=== PATIENT | female | born 1945 | race Caucasian/White ===

== ENCOUNTER 2016-06-01 08:45 | Emergency (ER) | payer OTHER ==
[2016-06-01] MEDS ORDERED: LABETALOL IV ONE (09:10)
--- NOTE | 2016-06-01 09:25 | PROVIDER DOCUMENTATION ---
HPI-EENT General - General Chief Complaint: B/P Problems Stated Complaint: NOSE BLEED Time Seen by Provider: 06/01/16 08:47 Source: patient Allergies/Adverse Reactions: Patient Allergies Allergy/AdvReac Type Severity Reaction Status Date / Time aspirin Allergy Unknown Verified 06/01/16 08:49 fexofenadine HCl * Allergy Unknown Verified 06/01/16 08:49 [From Bridget] gabapentin Allergy Unknown Verified 06/01/16 08:49 hydromorphone HCl * Allergy Unknown Verified 06/01/16 08:49 [From Dilaudid] methocarbamol Allergy Unknown Verified 06/01/16 08:49 pravastatin Allergy Unknown Verified 06/01/16 08:49 zolpidem tartrate * Allergy Unknown Verified 06/01/16 08:49 [From Ambien] aripiprazole [From Abilify] AdvReac Unknown Verified 06/01/16 08:49 Home Medications: Home Medication List Medication Instructions Recorded Confirmed Last Taken Type Carvedilol 6.25 mg PO BID #0 11/23/14 06/01/16 11/13/14 08:00 Rx 6.25mg Divalproex E.r. [Depakote ER] 500 mg PO TID #0 tablet 11/23/14 06/01/16 Unknown Rx Fenofibrate [Tricor] 48 mg PO QHS #0 11/23/14 06/01/16 11/12/14 21:00 Rx 48mg Furosemide 40 mg PO BID #0 11/23/14 06/01/16 11/13/14 08:00 Rx 40 Levothyroxine [Synthroid] 75 microgm PO DAILY #0 11/23/14 06/01/16 11/13/14 08: 00 Rx 75 Omeprazole 20 mg PO DAILY #0 11/23/14 06/01/16 11/13/14 08:00 Rx 20 Oxybutynin Chloride [Oxybutynin 15 mg PO DAILY #0 11/23/14 06/01/16 11/13/14 08 :00 Rx Chloride ER] Perphenazine [Trilafon] 4 mg PO BID #0 tablet 11/23/14 06/01/16 Unknown Rx Potassium Chloride E.r. [Micro-K] 10 meq PO DAILY #0 11/23/14 06/01/16 08:00 Rx 1 Pregabalin [Lyrica] 75 mg PO HS #0 11/23/14 06/01/16 10/10/14 22:30 Rx Ropinirole HCl 1 mg PO QHS #0 11/23/14 06/01/16 10/10/14 22:00 Rx Travoprost (Benzalkonium) 1 drp BOTH EYES QAM #0 11/23/14 06/01/16 11/12/14 08: 00 Rx [Travatan 0.004% Eye Drop] - History of Present Illness-EENT General Nature of Presenting Problem: Pt is 70 y/o F presents to the ED with epistaxis and HTN. Pt states the nose bleed started Wednesday and has been intermittently present since. Pt states nose bleed from R nostril. Pt states elevated BP after the nose bleed. Pt states VILLANUEVA with nose bleed and dizziness. Pt denies taking blood thinners. EENT Location: reports: nose Quality of Pain: reports: pressure Severity: reports: mild Onset/Duration: reports: 3 days ago Timing: reports: still present, intermittent Prearrival Treatment: Initiated no prearrival treatment Associated Symptoms: reports: other (nose bleed). denies: change in hearing, cough, drooling, ear drainage, facial pain/swelling, fever, malaise, nasal congestion/drainage, poor fluid intake, poor solids intake, sinus infection, sore throat, tooth pain, voice change Locality of [place]urance: Home Similar Symptoms Previously?: Yes Recently seen or treated by another doctor?: No - Nose Nose Problem Symptoms: nosebleed Review of Systems - Adult - REVIEW OF SYSTEMS - ADULT Constitutional: denies: chills, fever Eyes: denies: blurred vision, double vision Ears, Nose, Mouth & Throat: reports: epistaxis. denies: ear pain, nose pain, throat pain Cardiovascular: denies: chest pain, heart murmur, irregular heart rate Respiratory: denies: cough, shortness of breath, wheezing Gastrointestinal: denies: abdominal pain, diarrhea, nausea, vomiting Genitourinary: denies: dysuria, hematuria Musculoskeletal: denies: bone pain, joint pain, neck pain Integumentary: denies: hives, itching Neurological: reports: dizziness/vertigo (dizziness), headache/migraines (VILLANUEVA) Psychiatric: reports: no symptoms reported Endocrine: reports: no symptoms reported Hematologic/Lymphatic: reports: no symptoms reported Allergic/Immunologic: reports: no symptoms reported All Other Systems: Reviewed and Negative Past History - Adult - PAST MEDICAL HISTORY-ADULT Review of Records: reports: Nursing Assessment Review, Medications Reviewed, Social history reviewed & non-contributory. Major Childhood Illnesses: reports: denies history Cardiovascular: reports: CAD, HTN, [place], other (Periphreal edema) Respiratory: reports: denies history Gastrointestinal: reports: GERD Obstetrical/Gynecological: reports: denies history Genitourinary: reports: other (vulva CA) Musculoskeletal: reports: denies history Neurological: reports: denies history Psychiatric: reports: depression, other (schizoaffective disorder) Endocrine/Immune: reports: thyroid disorder (hypothyroid) Other Conditions: reports: other (peripheral edema) - PRIOR SURGERIES/PROCEDURES Surgical/Procedure History: reports: hysterectomy, BTL, indwelling device ( superpubic cath), other (vulva surgery) - IMMUNIZATION STATUS Childhood Immunizations: See Nurse Assessment Flu Vaccine: See Nurse Assessment - FAMILY HISTORY Family History: reviewed, not pertinent - SOCIAL HISTORY Smoking: quit greater than 1 year, cigarettes Substance Use: denies Living Situation: family Physical Exam- EENT - Physical Exam EENT Initial Vital Signs Reviewed: Yes General Appearance: appears well, alert, no apparent distress Eye Exam: bilateral eye: normal inspection, PERRL, EOMI Ear Exam: bilateral ear: auricle normal, canal normal, TM normal Nasal Exam: dried blood (R nostril). negative: active bleeding, discharge, foreign body, sinus tenderness Throat Exam: normal mouth inspection, pharynx normal Neck: non-tender, full range of motion, supple, normal inspection Respiratory: chest non-tender, lungs clear, normal breath sounds, no pleuratic chest pain, no respiratory distress, no accessory muscle use Cardiovascular: normal peripheral pulses, regular rate, rhythm, no edema, no gallop, no JVD, no murmur Abdominal Exam: normal bowel sounds, non tender, soft, no organomegaly, no pulsatile mass Lymphatic: no adenopathy Back Exam: normal inspection, no CVA tenderness, no vertebral tenderness Extremity: normal range of motion, non-tender, normal gait, normal inspection, no calf tenderness, normal capillary refill, pedal edema, swelling (edema to bilateral legs) Integumentary: normal color, normal turgor, warm/dry Neurologic: grossly normal Psych/Mental Status: normal mood/affect, oriented x 3 Progress - PLAN OF CARE/RESULTS Progress/Plan/Lab Results: Orders Category Date Time Status Cardiac Monitoring DIRECTED Care 06/01/16 09:10 Active Saline Loc NOW Care 06/01/16 09:10 Active CHEST-PORTABLE [RAD] Stat Exams 06/01/16 09:10 Ordered CBC WITH ELECTRONIC DIFF [HEME] Stat Lab 06/01/16 09:10 Ordered CK PROFILE [SP CHEM] Stat Lab 06/01/16 09:10 Ordered COMPREHENSIVE METABOLIC PANEL [CHEM] Stat Lab 06/01/16 09:10 Ordered MAGNESIUM [CHEM] Stat Lab 06/01/16 09:10 Ordered PRO B-NATRIURETIC PEPTIDE Stat Lab 06/01/16 09:10 Ordered PROTIME WITH INR [COAG] Stat Lab 06/01/16 09:10 Ordered PTT [COAG] Stat Lab 06/01/16 09:10 Ordered PTT [COAG] Stat Lab 06/01/16 09:16 Ordered TROPONIN T Stat Lab 06/01/16 09:10 Ordered Labetalol Med 06/01/16 09:10 Discontinued 20 mg IV NOW ONE EKG [EKG] Stat Ther 06/01/16 09:10 Ordered Vital Signs - 24 hr 06/01/16 08:46 Temperature 99.0 F Pulse Rate 73 Respiratory 20 Rate Blood Pressure 227/126 O2 Sat by Pulse 95 Oximetry Laboratory Tests 06/01/16 06/01/16 06/01/16 09:28 09:28 09:28 WBC 3.52 L RBC 3.84 L Hgb 12.3 Hct 38.0 MCV 99.0 MCH 32.0 H MCHC 32.4 L RDW Std Deviation 12.7 Plt Count 113 L MPV 8.4 Immature Gran % (Auto) 2.0 H Neut % (Auto) 52.8 Lymph % (Auto) 25.3 [place] % (Auto) 17.0 H Eos % (Auto) 2.3 Baso % (Auto) 0.6 Immature Gran # (Auto) 0.07 H Neut # (Auto) 1.86 Lymph # (Auto) 0.89 L [place] # (Auto) 0.60 H Eos # (Auto) 0.08 Baso # (Auto) 0.02 PT INR APTT (Factor Assay) Sodium 139 Potassium 3.9 Chloride 102 Carbon Dioxide 26 Anion Gap 11 BUN 23 H Creatinine 0.8 Estimated GFR/1.73 m2 > 60 BUN/Creatinine Ratio 29 Glucose 106 H Calculated Osmolality 282 Calcium 9.2 Magnesium 2.1 Total Bilirubin 0.50 AST 24 ALT 15 Alkaline Phosphatase 101 Creatine Kinase 60 Troponin T Kyx-H-Rjyxrkhxmkb Pept 119 Total Protein 6.3 Albumin 3.9 Globulin 2.0 Albumin/Globulin Ratio 2.0 06/01/16 06/01/16 09:28 09:28 WBC RBC Hgb Hct MCV MCH MCHC RDW Std Deviation Plt Count MPV Immature Gran % (Auto) Neut % (Auto) Lymph % (Auto) [place] % (Auto) Eos % (Auto) Baso % (Auto) Immature Gran # (Auto) Neut # (Auto) Lymph # (Auto) [place] # (Auto) Eos # (Auto) Baso # (Auto) PT 14.0 INR 1.05 APTT (Factor Assay) 27.6 Sodium Potassium Chloride Carbon Dioxide Anion Gap BUN Creatinine Estimated GFR/1.73 m2 BUN/Creatinine Ratio Glucose Calculated Osmolality Calcium Magnesium Total Bilirubin AST ALT Alkaline Phosphatase Creatine Kinase Troponin T < 0.010 Uqb-I-Afxhtjgkngu Pept Total Protein Albumin Globulin Albumin/Globulin Ratio - XRAY 1 XRAY: Bilateral XRAY Study: Chest Impression: Abnormal XRAY Interpretation: hiatal hernia. borderline cardiomegaly. Departure - Departure Time of Disposition Order: 10:33 DIAGNOSIS: Epistaxis Hypertension Qualifiers: Hypertension type: unspecified secondary hypertension Qualified Code(s): I15.9 - Secondary hypertension, unspecified; I15 - Secondary hypertension Disposition: HOME 01 Certified Medical Emergency: Emergent Condition: Stable Additional Instructions: Over the counter Aquaphor in bilateral nostrils. Follow up with PCP ASYA for further management. Referrals: Katherin Sullivan MD [Primary Care Provider] - Call for Appoint. 1-2days Attestation - Scribe Verification/Attestation Scribe:: Nisha Kirby Acting as Scribe for:: Rand Gutierrez Scribe documention review:: This chart was documented by a scribe and accurately reflects the service the provider performed and the decisions made by the provider.
[2016-06-01 09:35] LABS: MANUAL DIFF NEEDED? NO
[2016-06-01 09:37] LABS: BASO% 0.6 % (0.0-0.8); EOS# 0.08 X1000 (0.0-0.7); EOS% 2.3 % (0.0-10.0); HEMOGLOBIN 12.3 g/dL (12.0-16.0); IMM GRAN# 0.07 X1000 (0.0-0.04); LYMPH# 0.89 X1000 (1.2-3.4); LYMPH% 25.3 % (20.5-51.1); MCHC 32.4 g/dL (33-37); MPV 8.4 FL (7.4-10.4); NEUT% 52.8 % (42.2-75.2); PLT 113 X1000 (130-400); RBC 3.84 XMIL (4.2-5.4)
--- NOTE | 2016-06-01 09:38 | EKG Report ---
Test Performed on : 06/01/2016 09:28:43 AM Test Reason : CP Blood Pressure : / mmHG Vent. Rate : 067 BPM Atrial Rate : 067 BPM P-R Int : 222 ms QRS Dur : 092 ms QT Int : 408 ms P-R-T Axes : 046 -06 064 degrees QTc Int : 431 ms Sinus rhythm. with 1st degree AV block. Nonspecific T wave abnormality Abnormal ECG When compared with ECG of 12-SEP-2014 03:18, Nonspecific T wave abnormality, worse in Inferior leads T wave inversion now evident in Anterior leads Unconfirmed Result
[2016-06-01 09:50] LABS: INR 1.05 (0.86-1.15)
[2016-06-01 09:51] LABS: PTT PL 27.6 Seconds (22.6-43.9)
[2016-06-01 09:58] LABS: AGAP 11; ALBUMIN 3.9 g/dL (3.5-5.0); ALKALINE PHOSPHATASE 101 U/L (32-104); BUN 23 mg/dL (8-22); CALCIUM 9.2 mg/dL (8.8-10.2); CHLORIDE 102 mmol/L (98-107); CK PROFILE 60 U/L (24-173); COSMO 282; GOT 24 U/L (10-30); GPT 15 U/L (10-36); MAGNESIUM 2.1 mg/dL (1.5-2.7); POTASSIUM 3.9 mmol/L (3.5-5.1); SODIUM 139 mmol/L (136-145); TCO2 26 mmol/L (25-35); TOTAL PROTEIN 6.3 g/dL (6.3-8.3)
--- NOTE | 2016-06-01 10:22 | Diag Imaging Result Document ---
PROCEDURE NAME: CHEST-PORTABLE - 06/01/2016 PORTABLE CHEST AT 0915 HOURS: FINDINGS: There is a large hiatal hernia. The appearance of the chest has not changed significantly since 10/11/2014. The heart size is at the upper limits of normal. IMPRESSION: Hiatal hernia. Borderline cardiomegaly.
[2016-06-01 11:01] VITALS: BP 145/101
== END 2016-06-01 11:04 | disposition home or self-care (01) ==
LOC: P.ED 08:45
DX: R04.0 Epistaxis (principal); I10 Essential (primary) hypertension; R51 Headache; R42 Dizziness and giddiness; R60.0 Localized edema; I25.10 Atherosclerotic heart disease of native coronary artery without angina pectoris; I25.2 Old myocardial infarction; K21.9 Gastro-esophageal reflux disease without esophagitis; E03.9 Hypothyroidism, unspecified; Z79.899 Other long term (current) drug therapy; Z85.89 Personal history of malignant neoplasm of other organs and systems
CPT/HCPCS: 36415; 71010; 80053; 82550; 83735; 83880; 84484; 85025; 85610; 85730; 93005; 99284

== ENCOUNTER 2016-09-21 09:58 | Observation (INO) ==
[2016-09-21] MEDS ORDERED: NS 1,000 ML IV ONE (10:18)
[2016-09-21 10:47] LABS: MANUAL DIFF NEEDED? NO
[2016-09-21 10:52] LABS: BASO% 0.6 % (0.0-0.8); EOS# 0.15 X1000 (0.0-0.7); HEMATOCRIT 35.5 % (37.0-47.0); HEMOGLOBIN 11.5 g/dL (12.0-16.0); IMM GRAN# 0.16 X1000 (0.0-0.04); IMM GRAN% 3.2 % (0.0-0.5); LYMPH# 1.02 X1000 (1.2-3.4); LYMPH% 20.4 % (20.5-51.1); MCH 31.8 PG (27-31); MCHC 32.4 g/dL (33-37); MCV 98.1 FL (81-99); MONO# 0.71 X1000 (0.11-0.59); MONO% 14.2 % (1.7-9.3); MPV 8.7 FL (7.4-10.4); NEUT% 58.6 % (42.2-75.2); PLT 123 X1000 (130-400); RBC 3.62 XMIL (4.2-5.4)
[2016-09-21] MEDS ORDERED: NS 1,000 ML ONE (10:59)
[2016-09-21 11:05] LABS: INR 1.02 (0.86-1.15); PROTIME 13.7 Seconds (12.1-15.5)
[2016-09-21 11:06] LABS: PTT PL 28.6 Seconds (22.6-43.9)
[2016-09-21 11:08] LABS: ALBUMIN 3.9 g/dL (3.5-5.0); CALCIUM 9.2 mg/dL (8.8-10.2); POTASSIUM 4.1 mmol/L (3.5-5.1); TOTAL BILIRUBIN 0.5 mg/dL (0.20-1.00); TOTAL PROTEIN 6.7 g/dL (6.3-8.3)
--- NOTE | 2016-09-21 11:41 | Diag Imaging Result Doc PS360 ---
EXAM: CT ABD/PELVIS W/ IV CONT ONLY HISTORY: Abd pain with vag bleeding TECHNIQUE: Dose reduction protocol COMPARISON: 07/19/2014 FINDINGS: The heart is enlarged. There is a moderate sized hiatal hernia. There are several stones within the gallbladder. The gallbladder is contracted. There is fatty infiltration of the liver. Normal spleen, pancreas, and adrenal glands. No renal masses. Mild bilateral hydronephrosis. No ureteral stones. Moderate atherosclerosis. No aneurysmal dilatation to the aorta. No bowel obstruction. Normal appendix. No abscess. The urinary bladder is moderately distended. The wall is not thickened. The uterus has been removed. No pelvic mass. IMPRESSION: 1.Cardiomegaly 2.Moderate sized hiatal hernia 3.Cholelithiasis 4.Fatty infiltration of the liver 5.Mild bilateral hydronephrosis, but no ureteral stones. 6.Hysterectomy Electronically signed by Albert Villegas 09/21/2016 11:39 AM
[2016-09-21 13:00] LABS: BILIRUBIN URINE NEGATIVE (NEGATIVE); BLOOD URINE 4+ (NEGATIVE); CLARITY VERY CLOUDY (CLEAR); COLOR RED; GLUCOSE URINE NEGATIVE (NEGATIVE); LEUKOCYTES URINE 1+ (NEGATIVE); NITRITE URINE NEGATIVE (NEGATIVE); PROTEIN URINE 2+(100 mg/dL) mg/dL (NEGATIVE); SP GRAVITY URINE 1.015; UROBILINOGEN URINE NORMAL
[2016-09-21] MEDS ORDERED: NORCO-7.5 ONE (13:02)
[2016-09-21] MEDS ORDERED: NORCO-7.5 PO ONE (13:05)
[2016-09-21] MEDS ORDERED: ROCEPHIN 1 GM/NS 1 GM/50 ML IVPB IV ONE (13:23)
[2016-09-21 13:30] LABS: URINE CULTURE PL NEEDED? YES; URINE RBC TNTC /HPF (<10); URINE SOURCE CLEAN CATCH
--- NOTE | 2016-09-21 14:59 | PROVIDER DOCUMENTATION ---
This chart was entered by Susan Estes Scribe, acting as scribe for Rand Gutierrez MD. HPI-Female /OB/Breast - General Chief Complaint: Female Stated Complaint: HEMEORRHAGING Time Seen by Provider: 09/21/16 10:17 Source: reports: patient Allergies/Adverse Reactions: Patient Allergies Allergy/AdvReac Type Severity Reaction Status Date / Time aspirin Allergy Unknown Verified 06/01/16 08:49 fexofenadine HCl * Allergy Unknown Verified 06/01/16 08:49 [From Bridget] gabapentin Allergy Unknown Verified 06/01/16 08:49 hydromorphone HCl * Allergy Unknown Verified 06/01/16 08:49 [From Dilaudid] methocarbamol Allergy Unknown Verified 06/01/16 08:49 pravastatin Allergy Unknown Verified 06/01/16 08:49 zolpidem tartrate * Allergy Unknown Verified 06/01/16 08:49 [From Ambien] aripiprazole [From Abilify] AdvReac Unknown Verified 06/01/16 08:49 Home Medications: Home Medication List Medication Instructions Recorded Confirmed Last Taken Type Carvedilol 6.25 mg PO BID #0 11/23/14 06/01/16 11/13/14 08:00 Rx 6.25mg Divalproex E.r. [Depakote ER] 500 mg PO TID #0 tablet 11/23/14 06/01/16 Unknown Rx Fenofibrate [Tricor] 48 mg PO QHS #0 11/23/14 06/01/16 11/12/14 21:00 Rx 48mg Furosemide 40 mg PO BID #0 11/23/14 06/01/16 11/13/14 08:00 Rx 40 Levothyroxine [Synthroid] 75 microgm PO DAILY #0 11/23/14 06/01/16 11/13/14 08: 00 Rx 75 Omeprazole 20 mg PO DAILY #0 11/23/14 06/01/16 11/13/14 08:00 Rx 20 Oxybutynin Chloride [Oxybutynin 15 mg PO DAILY #0 11/23/14 06/01/16 11/13/14 08 :00 Rx Chloride ER] Perphenazine [Trilafon] 4 mg PO BID #0 tablet 11/23/14 06/01/16 Unknown Rx Potassium Chloride E.r. [Micro-K] 10 meq PO DAILY #0 11/23/14 06/01/16 08:00 Rx 1 Pregabalin [Lyrica] 75 mg PO HS #0 11/23/14 06/01/16 10/10/14 22:30 Rx Ropinirole HCl 1 mg PO QHS #0 11/23/14 06/01/16 10/10/14 22:00 Rx Travoprost (Benzalkonium) 1 drp BOTH EYES QAM #0 11/23/14 06/01/16 11/12/14 08: 00 Rx [Travatan 0.004% Eye Drop] - History of Present Illness-Female /OB Nature of Presenting Problem: PT IS A 71YOF PRESENTING TO THE ED C/O VAGINAL BLEEDING. PT STATES SHE HAD A FULL HYSTERECTOMY IN 2008 AND 3 DAYS AGO SHE BEGAN HAVING WHAT SHE THINKS IS VAGINAL BLEEDING. PT STATES USING 5-6 SANITARY PADS PER DAY. PTS ABD IS DISTENDED AND UNSURE IF ITS HEMORRHOID BLEEDING OR VAGINAL. SHE STATES IT BURNED ONCE WITH URINATION. SHE IS HAVING PELVIC PAIN AND LOW BACK PAIN. NO OTHER COMPLAINTS NOTED AT THIS TIME. Location of complaint: reports: suprapubic Radiation: reports: back Quality of Pain: reports: aching, cramping Severity in ED: reports: moderate Onset/Duration: reports: 3 days ago Timing: reports: still present Context/Activities at Onset: reports: light activity Vaginal Symptoms: reports: abnormal bleeding, passing clots/tissue Vaginal Bleeding Amount: Medium/Moderate Urinary Symptoms: reports: low back pain, other (ONE EPISODE OF BURNING DURING) Related Symptoms: reports: pelvic pain, vaginal bleeding, abdominal pain Leakage of Fluid: none Sexual intercourse history: reports: Not Active Contraception: reports: none Modifying Factors: improves with: palpation, urinating Associated Symptoms: reports: anxiety. denies: back/neck pain, chest pain, diarrhea, fatigue, nausea, vomiting Similar Symptoms Previously?: No Recently seen or treated by another doctor?: No - LMP/ History Menstrual Status: other (HYSTERECTOMY) Review of Systems - Adult - REVIEW OF SYSTEMS - ADULT Constitutional: reports: no symptoms reported Eyes: reports: no symptoms reported Ears, Nose, Mouth & Throat: reports: no symptoms reported Cardiovascular: reports: no symptoms reported Respiratory: reports: no symptoms reported Gastrointestinal: reports: see HPI, abdominal pain, other (SUPRAPUBIC/ PELVIC PAIN) Genitourinary: reports: no symptoms reported, see HPI, dysuria, frequent UTI's. denies: urgency Musculoskeletal: reports: no symptoms reported Integumentary: reports: no symptoms reported Neurological: reports: no symptoms reported Psychiatric: reports: no symptoms reported Endocrine: reports: no symptoms reported Hematologic/Lymphatic: reports: no symptoms reported Allergic/Immunologic: reports: no symptoms reported All Other Systems: Reviewed and Negative Past History - Adult - PAST MEDICAL HISTORY-ADULT Review of Records: reports: Old Records Reviewed, Nursing Assessment Review, Medications Reviewed, Social history reviewed & non-contributory. Major Childhood Illnesses: reports: denies history Cardiovascular: reports: CAD, HTN, [place], other (Periphreal edema) Respiratory: reports: denies history Gastrointestinal: reports: GERD Obstetrical/Gynecological: reports: denies history Genitourinary: reports: other (vulva CA) Musculoskeletal: reports: denies history Neurological: reports: denies history Psychiatric: reports: depression, other (schizoaffective disorder) Endocrine/Immune: reports: thyroid disorder (hypothyroid) Other Conditions: reports: other (peripheral edema) - PRIOR SURGERIES/PROCEDURES Surgical/Procedure History: reports: hysterectomy, BTL, indwelling device ( superpubic cath), other (vulva surgery) - IMMUNIZATION STATUS Childhood Immunizations: See Nurse Assessment Flu Vaccine: See Nurse Assessment - FAMILY HISTORY Family History: reviewed, not pertinent - SOCIAL HISTORY Smoking: cigarettes, greater than 1 pack/day Provider spent 3-5 mins advising pt. on dangers of tobacco.: Discussed manners to quit use, and f/u contacts for add'l counseling. Substance Use: none/never, denies Living Situation: family Physical Exam-General - PHYSICAL EXAM-ADULT Initial Vital Signs Reviewed: Yes - CONSTITUTIONAL General Appearance: appears well, alert, mild distress, obese, anxious - EYES Eyes: PERRL/EOMI, pink conjunctivae - HEAD, EARS, NOSE, MOUTH & THROAT HENMT: normocephalic/atraumatic, moist mucous membranes, normal ENT inspection, TMs normal, pharynx normal - NECK Neck: non-tender, full range of motion, supple, normal inspection - RESPIRATORY Respiratory: chest non-tender, lungs clear, normal breath sounds, no pleuratic chest pain, no respiratory distress, no accessory muscle use - CARDIOVASCULAR Cardiovascular: normal peripheral pulses, regular rate, rhythm, no edema, no gallop, no JVD, no murmur - GASTROINTESTINAL (ABDOMEN) Abdominal Exam: normal bowel sounds, soft, no organomegaly, no pulsatile mass, distended, tenderness (PELVIC). negative: non tender - LYMPHATIC Lymphatic: no adenopathy - MUSCULOSKELETAL Back Exam: normal inspection, no CVA tenderness, no vertebral tenderness Extremity: normal range of motion, non-tender, normal gait, normal inspection, no pedal edema, no calf tenderness, normal capillary refill, pelvis stable - SKIN Integumentary: normal color, normal turgor, warm/dry - NEUROLOGIC Neurologic: allergy specialist II-XII nml as tested, grossly normal, no motor/sensory deficits - PSYCHIATRIC Psych/Mental Status: normal mood/affect, normal thought content, normal thought process, oriented x 3, anxious Progress - PLAN OF CARE/RESULTS Progress/Plan/Lab Results: Vital Signs - 8 hr 09/21/16 10:03 Temperature 98 F Pulse Rate 76 Respiratory Rate 18 Blood Pressure 186/110 O2 Sat by Pulse Oximetry 95 Laboratory Results - last 24 hr 09/21/16 09/21/16 09/21/16 10:35 10:35 10:35 WBC 4.99 RBC 3.62 L Hgb 11.5 L Hct 35.5 L MCV 98.1 MCH 31.8 H MCHC 32.4 L RDW Std Deviation 12.7 Plt Count 123 L MPV 8.7 Immature Gran % (Auto) 3.2 H Neut % (Auto) 58.6 Lymph % (Auto) 20.4 L [place] % (Auto) 14.2 H Eos % (Auto) 3.0 Baso % (Auto) 0.6 Immature Gran # (Auto) 0.16 H Neut # (Auto) 2.92 Lymph # (Auto) 1.02 L [place] # (Auto) 0.71 H Eos # (Auto) 0.15 Baso # (Auto) 0.03 PT 13.7 INR 1.02 APTT (Factor Assay) 28.6 Sodium 139 Potassium 4.1 Chloride 103 Carbon Dioxide 27 Anion Gap 10 BUN 29 H Creatinine 1.0 H Estimated GFR/1.73 m2 55 BUN/Creatinine Ratio 29 Glucose 100 Calculated Osmolality 283 Calcium 9.2 Total Bilirubin 0.50 AST 24 ALT 14 Alkaline Phosphatase 77 Total Protein 6.7 Albumin 3.9 Globulin 3.0 Albumin/Globulin Ratio 1.0 Amylase 37 Lipase 19 Urine Source Urine Color Urine Clarity Urine pH Ur Specific [place] Urine Protein Urine Ketones Urine Blood Urine Nitrite Urine Bilirubin Urine Urobilinogen Urine Microscopic RBC Urine WBC Urine Glucose 09/21/16 11:10 WBC RBC Hgb Hct MCV MCH MCHC RDW Std Deviation Plt Count MPV Immature Gran % (Auto) Neut % (Auto) Lymph % (Auto) [place] % (Auto) Eos % (Auto) Baso % (Auto) Immature Gran # (Auto) Neut # (Auto) Lymph # (Auto) [place] # (Auto) Eos # (Auto) Baso # (Auto) PT INR APTT (Factor Assay) Sodium Potassium Chloride Carbon Dioxide Anion Gap BUN Creatinine Estimated GFR/1.73 m2 BUN/Creatinine Ratio Glucose Calculated Osmolality Calcium Total Bilirubin AST ALT Alkaline Phosphatase Total Protein Albumin Globulin Albumin/Globulin Ratio Amylase Lipase Urine Source CLEAN CATCH Urine Color RED Urine Clarity VERY CLOUDY A Urine pH 7.0 Ur Specific [place] 1.015 Urine Protein 2+(100 mg/dL) A Urine Ketones NEGATIVE Urine Blood 4+ Urine Nitrite NEGATIVE Urine Bilirubin NEGATIVE Urine Urobilinogen NORMAL Urine Microscopic RBC TNTC A Urine WBC 1+ A Urine Glucose NEGATIVE Orders Category Date Time Status Pelvic set up DIRECTED Care 09/21/16 12:15 Active Saline Loc DIRECTED Care 09/21/16 10:18 Active NPO Diet 09/21/16 10:[address] ABD/PELVIS W/ IV CONT ONLY [CT] Stat Exams 09/21/16 10:18 Completed AMYLASE [CHEM] Stat Lab 09/21/16 10:35 Completed CBC WITH ELECTRONIC DIFF [HEME] Stat Lab 09/21/16 10:35 Completed COMPREHENSIVE METABOLIC PANEL [CHEM] Stat Lab 09/21/16 10:35 Completed LIPASE [CHEM] Stat Lab 09/21/16 10:[address] Com[address]IME WITH INR PL [COAG] Stat Lab 09/21/16 10:[address] [COAG] Stat Lab 09/21/16 10:[address] W/POSS RFLX CULT [URINALYSIS] Stat Lab 09/21/16 11:10 Completed URINE CULTURE [RM] Routine Lab 09/21/16 13:30 Ordered 0.9% Sodium Chloride Inj [Ns] 1,000 ml Med 09/21/16 10:59 Discontinued .ROUTE As Directed 0.9% Sodium Chloride Inj [Ns] 1,000 ml Med 09/21/16 10:18 Discontinued IV 999 mls/hr CefTRIAXONE 1 GM/NS [Rocephin 1 gm/Ns] Med 09/21/16 13:23 Discontinued 1 gm in 50 ml IV NOW Hydrocodone/APAP 7.5 mg/325 mg [[place]-7.5] Med 09/21/16 13:02 Discontinued 1 each .ROUTE .STK-MED ONE Hydrocodone/APAP 7.5 mg/325 mg [[place]-7.5] Med 09/21/16 13:05 Discontinued 1 each PO NOW ONE Result Diagrams: 09/21/16 10:35 09/21/16 10:35 - REASSESSMENT Reassessment #1 Time Reassessed: 13:23 Status: unchanged (Rectal exam - multiple external hemorrhoids, no thrombosis noticed. 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 Pt lost bladder control and she has bloody urine comming out constantly. Dr. Sanderson was consulted and instructed to call pt's CREDIT ADVISOR Oncologist and f/u. Dr. Guillermo Faulkner was paged because she was the Oncologist treated her for the cancer X 2 years ago.) Reassessment #2 Time Reassessed: 14:56 Status: unchanged (Discussed with Dr. Faulkner's PAHortensia - referred to Dr. Gardner , Radiation Oncologist, who decided to admit to [place] via hospitalist.) - CT/MRI 1 CT Study: Abdomen, Pelvis (MILD BILAT HYDRONEPHROSIS, NO STONES NOTED, HYSTERECTOMY) CT Results: CARDIOMEGALLY, MOD HITAL HERNIA, CHOLELITHIOSIS, FATTY LIVER Departure - Departure Date of Disposition Decision: 09/21/16 Time of Disposition Decision: 14:57 DIAGNOSIS: Vaginal hemorrhage, Hematuria, History of radiation therapy Disposition: ADMITTED INPATIENT 09 Certified Medical Emergency: Emergent Condition: Stable Referrals and Follow-Ups: Katherin Sullivan MD [Primary Care Provider] - - Critical Care Note This patient required my direct & personal management of CC.: Yes Total Time (mins): 45 Critical Care Statement: This patient required my direct personal management to treat or rule out processes, the absence of which, could potentiallly result in sudden, clinically significant life or limb threatening deterioration. This chart was documented by the indicated scribe, (Susan Estes Scribe) and accurately reflects the services I performed and decisions made by me, Rand Gutierrez MD, as attested by the provider's signature.
[2016-09-21] MEDS ORDERED: TRILAFON PO ONE ×2 (17:01→17:15)
[2016-09-21] MEDS ORDERED: DEPAKOTE ER PO ONE (17:01)
[2016-09-21] MEDS ORDERED: ZOFRAN IV PRN (18:53)
[2016-09-21] MEDS ORDERED: TYLENOL PO PRN (18:53)
--- NOTE | 2016-09-21 19:47 | HISTORY AND PHYSICAL ---
PRIMARY CARE PHYSICIAN: Katherin Sullivan MD CHIEF COMPLAINT: Vaginal bleed. HISTORY OF PRESENT ILLNESS: This is a 71-year-old female with a history of vulvar cancer status post hysterectomy and subsequent radiation. She presented to the emergency room complaining of abdominal pain for the last 3-4 days and stating that she had some terrible cramps this morning, followed by vaginal bleeding. She stated the blood ran down her leg. It was bright red and she did have clots. She has had no further episodes. A pelvic was performed per Dr. Gutierrez, the emergency room physician and no blood was seen. She states that she has had no prior history of vaginal bleeding, although when you look back in her records, she was in the emergency room for vaginal bleeding. She denies any syncope, dizziness, shortness of breath, PND, orthopnea, any black or bloody vomitus black or bloody stools, any diarrhea or constipation. She will be admitted to [facility], [place] for further evaluation and treatment. PAST MEDICAL HISTORY: Hypertension. History of diet-controlled diabetes. Hypothyroid. Vulvar cancer status post hysterectomy and chemotherapy. Schizoaffective disorder, bipolar type. Hiatal hernia. PAST SURGICAL HISTORY: Hysterectomy. SOCIAL HISTORY: She denies alcohol, tobacco or illicit drug use. ALLERGIES: Phenergan, Lyrica, aspirin, hydrocodone, ibuprofen, methocarbamol, gabapentin and Dilaudid. REVIEW OF SYSTEMS: A 14-point review of systems is discussed with the patient with pertinent positives stated in the HPI. She denied chest pain, palpitations, syncope, dizziness, shortness of breath, cough, fever, chills, PND, orthopnea, nausea, vomiting, diarrhea, constipation, black or bloody vomitus, black or bloody stools, any hematuria, dysuria, frequency, or urgency. PHYSICAL EXAMINATION: GENERAL: This is a 71-year-old female who is lying in the bed in no distress. HEENT: Head is normocephalic, atraumatic. Pupils are equal, round, react to light. EOMs are intact. Sclerae are anicteric. Mucous membranes are moist. NECK: Supple with trachea midline. CARDIOVASCULAR: Regular rate and rhythm. S1 and S2 are appreciated. PULMONARY: Breath sounds are clear with no increased work of breathing noted. Chest does rise and fall symmetrically with respiration. ABDOMEN: Large. It is distended. It is soft. It is nontender with bowel sounds in all 4 quadrants. MUSCULOSKELETAL: Good range of motion to joints. EXTREMITIES: No clubbing, cyanosis, or edema. Calves are nontender. Pulses are palpable x4. NEUROLOGIC: She is alert and oriented x3. DIAGNOSTICS: Laboratory: WBC is 4.9, with a hemoglobin 11.5, hematocrit 35.5 and platelets of 123,000. Sodium is 139, potassium 4.1, BUN 29, creatinine 1, with a glucose of 100. Urinalysis revealed 2+ protein with 4+ blood, too numerous to count microscopic red blood cells. CT scan of the abdomen and pelvis revealed cardiomegaly, moderate-sized hiatal hernia, cholelithiasis, fatty infiltration of the liver, mild bilateral hydronephrosis, but no ureteral stones and hysterectomy. This was compared to CT of July 2014. ASSESSMENT: 1. Vaginal bleeding. 2. History of vulvar cancer status post hysterectomy in 2008. 3. Hypertension. 4. Hypothyroid. 5. Schizoaffective disorder, bipolar type. 6. DVT and GI prophylaxis. PLAN: 1. The patient will be admitted to the hospital. We will draw routine labs and trend hemoglobin and hematocrit. We will monitor for any further bleeding. We will identify her home medications and continue as appropriate. We will check a TSH, fingerstick blood sugars. 2. I did call Dr. Sanderson who is cnc applications engineer for Gynecology and she stated that in light of no blood being found per Dr. Gutierrez during a vaginal exam that she recommends the patient follow up with BONDING EQUIPMENT OPERATOR/Oncology on an outpatient basis. The patient has not no BONDING EQUIPMENT OPERATOR/Oncology. She has never seen them. She followed with Brunilda Gutierrez MD who did her surgery and Dr. Chiquita Faulkner who did her chemotherapy. She states she has not seen Dr. Faulkner in over 5 years after chemotherapy was completed. She has been following with Dr. Sullivan, her primary care physician. 3. For DVT prophylaxis we will use SCDs and for GI prophylaxis we will use Prilosec. Further treatments pending hospital course. Dictated by SHAQUILLE Reaves for Dayne Pak MD cc: SHAQUILLE Reaves MD [facility]
[2016-09-22 06:07] LABS: HEMATOCRIT 36.8 % (37.0-47.0); MCH 32.3 PG (27-31); MCHC 32.6 g/dL (33-37); MCV 99.2 FL (81-99); MPV 9.2 FL (7.4-10.4); RBC 3.71 XMIL (4.2-5.4)
[2016-09-22 06:23] LABS: ALBUMIN 3.6 g/dL (3.5-5.0); CALCIUM 9.3 mg/dL (8.8-10.2); POTASSIUM 4.1 mmol/L (3.5-5.1); TOTAL BILIRUBIN 0.6 mg/dL (0.20-1.00); TOTAL PROTEIN 6.3 g/dL (6.3-8.3)
[2016-09-22] MEDS: NORCO-7.5 PO PRN ×2 (12:34→21:09)
--- NOTE | 2016-09-22 13:01 | PROGRESS NOTE ---
DATE: 09/22/2016 SUBJECTIVE: This patient states that she is feeling better. She is still having vaginal bleed but compared with admission, it is not that bad. She states that she has been having clots but recently it is better. I did a manual vaginal examination and the blood is coming from her vagina. I will contact Dr. Faulkner because apparently that was that was the initial plan. OBJECTIVE: Vital Signs: Temperature 98.5 degrees, pulse 78, respiratory rate 20, blood pressure 139/80, oxygen saturation 94% on room air. HEENT: Head normocephalic. No trauma. PERRLA. Neck: Supple. No JVD. No masses. Central trachea. Chest: Clear to auscultation. No wheezing. No rales. Abdomen: Soft, protuberant, nontender, nondistended. No hepatosplenomegaly. Pelvic Area: Her skin irritated, sensitive. Blood is coming out from her vagina. I did a manual vaginal examination to corroborate this. Neurological: The patient is alert and oriented x3. No focal deficits. LABORATORY: WBC 9.2, hemoglobin 12, hematocrit 36.8, platelets 118,000. Sodium 141, potassium 4.1, chloride 102, bicarbonate 26, BUN 22, creatinine 1.1, glucose 114, calcium 9.3. ASSESSMENT AND PLAN: 1. Vaginal bleed. Hematology/oncology has been consulted since she was previously treated by Dr. Faulkner secondary to vulvar cancer. Apparently she had a hysterectomy done in 2008. We will follow her recommendations. Hemoglobin and hematocrit are stable. 2. History of vulvar cancer, as above. 3. Hypertension. Stable. Continue with the same management. 4. Hypothyroidism. I will put this patient on levothyroxine. 5. Schizoaffective disorder, bipolar type. Aware. 6. Deep vein thrombosis and gastrointestinal prophylaxis. We will continue with SCDs. I have no reasons to use PPIs. cc: Yasir Garcia MD
[2016-09-22] MEDS: LYRICA PO SCH ×2 (19:50→22:51)
[2016-09-22] MEDS: REQUIP PO SCH ×2 (19:51→22:53)
[2016-09-22] MEDS: MEVACOR PO SCH ×2 (19:51→22:53)
[2016-09-22] MEDS: COREG PO SCH ×2 (19:53→22:46)
[2016-09-23 05:13] VITALS: BP 134/91
[2016-09-23] MEDS: SYNTHROID PO SCH ×2 (05:17→06:12)
[2016-09-23 06:46] LABS: MANUAL DIFF NEEDED? NO
[2016-09-23 06:57] LABS: BASO% 0.3 % (0.0-0.8); EOS# 0.17 X1000 (0.0-0.7); EOS% 2.3 % (0.0-10.0); HEMATOCRIT 32.2 % (37.0-47.0); HEMOGLOBIN 10.5 g/dL (12.0-16.0); IMM GRAN% 1.4 % (0.0-0.5); LYMPH% 17.8 % (20.5-51.1); MCH 32.4 PG (27-31); MCHC 32.6 g/dL (33-37); MCV 99.4 FL (81-99); MONO# 1.06 X1000 (0.11-0.59); MONO% 14.5 % (1.7-9.3); MPV 9.2 FL (7.4-10.4); NEUT% 63.7 % (42.2-75.2); PLT 131 X1000 (130-400); RBC 3.24 XMIL (4.2-5.4)
[2016-09-23 07:17] LABS: CALCIUM 8.9 mg/dL (8.8-10.2); POTASSIUM 3.9 mmol/L (3.5-5.1)
[2016-09-23] MEDS: COREG PO SCH (07:56)
[2016-09-23] MEDS: NORCO-7.5 PO PRN (07:56)
[2016-09-23] MEDS ORDERED: PNEUMOVAX 23 IM ONE (08:30)
[2016-09-23] MEDS ORDERED: TRAVATAN 0.004% OPH SOLN BOTH EYES SCH (09:00)
[2016-09-23] MEDS ORDERED: KLOR-CON PO SCH (09:00)
[2016-09-23] MEDS ORDERED: DITROPAN XL PO SCH (09:00)
[2016-09-23] MEDS ORDERED: LOFIBRA PO SCH (09:00)
[2016-09-23] MEDS ORDERED: LASIX PO SCH (09:00)
--- NOTE | 2016-09-23 11:44 | CONSULTATION ---
DATE OF CONSULTATION: 09/22/2016 CONSULTATION REQUESTED BY: The hospitalist service. REASON FOR CONSULTATION: Vulvar cancer, patient known. HISTORY OF PRESENT ILLNESS: Ms. Kavitha Drummond is a 71-year-old female, who has a history of vulvar cancer, who is status post hysterectomy. The patient has been lost to follow up and was last seen in our office in 2014. The patient has previously received chemo/radiation and completed 5 cycles of cisplatin. The patient has been evaluated by CABLE BRAIDER/Onc previously. She is a patient of Dr. Esparza; she last saw Dr. Esparza in September 2014. At that time per his office visit note, it was suspected that the patient had recurrence around the urethra. The patient at that time expressed that she did not want to undergo any further treatments for her cancer. The patient declined an exam under anesthesia and a biopsy at that time as well. The patient was to follow up with Dr. Esparza in December 2014, but did not show up at that appointment. She was also scheduled to see us around that same time. The patient is now in presenting to [facility] complaining of abdominal pain, as well as vaginal bleeding. She has undergone a pelvic examination in the emergency room where no vaginal bleeding was noted. The on-call CABLE BRAIDER was contacted and recommended the patient follow up as an outpatient with either CABLE BRAIDER/Onc or gynecology. It seems now that a repeat pelvic has been done and appears that the patient does have some vaginal bleeding. It is believed that the patient is having a recurrence of her cancer. The patient has no acute distress at this time. PAST MEDICAL HISTORY: 1. Hypertension. 2. Diabetes. 3. Hypothyroidism. 4. Vulvar cancer status post hysterectomy, as well as chemotherapy and radiation. 5. Schizoaffective disorder, bipolar type. 6. Hiatal hernia. PAST SURGICAL HISTORY: 1. BSO. 2. Hysterectomy. 3. Urethral sling. 4. Endometrial ablation. SOCIAL HISTORY: Patient is . She lives with her spouse. She is a former smoker, but discontinued smoking back in 1987. She denies any alcohol or illicit drug use. FAMILY HISTORY: Positive for diabetes mellitus and lung cancer in her father. She also has 2 sisters who have uterine cancer or "female cancer". She also has a brother and a sister, who both of lung cancer. REVIEW OF SYSTEMS: A 12 point review of systems has been completed and is negative, except for in the HPI. PHYSICAL EXAMINATION: Vital Signs: Temperature 98.5 degrees, heart rate 78, respirations 20, blood pressure 139/80, 02 saturating 82% to 94% on room air. General: female sitting in hospital bed with her at bedside. She is eating lunch. No acute distress. Eyes: Pupils equal, round, reactive. Ears, nose, throat, neck, and mouth: Oral mucosa appears to be normal. Trachea midline. Gross auditory acuity is intact. Cardiovascular: S1, S2 heard. No murmurs, gallops, rubs appreciated. Respiratory: Chest is essentially clear to auscultation bilaterally. Gastrointestinal: Abdomen is obese. Positive bowel sounds. Nontender. Musculoskeletal: No obvious bony abnormalities noted. Extremities: She does have bilateral 1+ edema of the lower extremities. Neurologic: Patient appears to be alert and oriented x3. No focal motor deficits. LABORATORY STUDIES: White blood cells 9.22, hemoglobin 12.0, hematocrit 36.8, platelets 118. Sodium 141, potassium 4.1, chloride 102, CO2 26, BUN 22, creatinine 1.1, glucose 114. ASSESSMENT/PLAN: 1. Vulvar cancer now with what appears to be recurrence. Did discuss with the patient the fact that we feel strongly that she has a recurrence of her cancer. The patient again expresses that she would not like to have any treatment. We discussed that would mean that it would likely not be beneficial to undergo any further workup in regards to biopsies and other things to confirm that she has a recurrence of cancer. The patient agrees. We also discussed that if she does not treat her cancer that it will over time get worse. Patient verbalized understanding and more than once reiterated that she does not want any further treatment for cancer. We discussed hospice as an option; the patient agreed and has asked for hospice referral at this time. That will be placed. 2. Vaginal bleeding, likely secondary to recurrence of her cancer. Can treat this symptomatically. The patient does not want treatment for cancer. 3. Hypertension. Currently stable. Continue current management. 4. Hypothyroidism. Continue current management. 5. Schizoaffective disorder, bipolar type. Aware. Stable. Dictated by EDWAR Hanson for Chiquita Faulkner MD cc: MD Katherin Loco MD
--- NOTE | 2016-09-24 14:08 | DISCHARGE SUMMARY ---
ADMISSION DATE: 09/21/2016 DISCHARGE DATE: 09/23/2016 DISCHARGE DIAGNOSES: 1. Vulvar cancer with vaginal bleeding. 2. Hypothyroidism. 3. Hypertension. 4. Affective disorder bipolar type. 5. Urinary tract infection. HOSPITAL COURSE: Ms. Kavitha Drummond is a 71-year-old, female who has a history of vulvar cancer with a history of hysterectomy and radiation therapy in the past. She presented to the emergency department with abdominal pain lasting for the past 3-4 days and had vaginal bleeding. The bleeding was severe and has subsided since then. She was admitted to the hospital and Oncology consultation was obtained with Dr. Faulkner. Patient really mentioned that she did not want anymore active chemotherapy or radiation therapy. She does not want any active intervention nor does she want any surgery. At this point she really wants to go home on hospice and, therefore, she has elected to be discharged on [facility]. We did obtain a urine culture that was found to be positive for gram-negative rods and final culture results are pending at this time. Her vaginal bleeding has subsided and she is in a stable enough condition to be discharged home today. She will be on hospice however. DISCHARGE MEDICATIONS: 1. Carvedilol 12.5 mg orally twice daily. 2. Lasix 40 mg orally once daily. 3. Potassium chloride 10 mEq orally once daily. 4. Levothyroxine 75 mcg orally once daily. 5. Oxybutynin ER 50 mg orally once daily. 6. Requip 1 mg orally once daily at bedtime. 7. Lyrica 75 mg orally once daily at bedtime. 8. Omeprazole 20 mg orally once daily. 9. Depakote 500 mg orally 3 times a day. 10. Perphenazine 4 mg orally twice daily. 11. Hydrocodone 7.5 mg/acetaminophen 325 mg orally every 6 hours as needed for pain. 12. Travoprost 0.004% ophthalmic solution 1 drop to each eye once daily in the morning. FOLLOWUP: She will follow up with me at the office in approximately 1 week. CONDITION: Stable. DISPOSITION: Home with hospice. TIME SPENT: A total of more than 40 minutes were spent during the discharge process. cc: Katherin Sullivan MD MTDD
== END 2016-09-23 09:33 | disposition hospice, home (50) ==
LOC: P.ED 09:58 → 4N 18:00 → INTOOBSV 18:00 → SUATTDRO 18:00 → 4N 18:02
PROVIDERS: ADMIT Internal Medicine; ATTEND Internal Medicine